=== PATIENT | female | born 1995 | race Caucasian/White ===

== ENCOUNTER 2025-08-26 16:34 | Emergency (ER) | payer OTHER, SELFPAY ==
--- NOTE | 2025-08-26 16:36 | ED_ITS ---
HPI - Skin/Abscess/Foreign Bdy General Chief complaint: Skin/Abscess/Foreign Body Stated complaint: Skin Sore/Left Leg Time Seen by Provider: 08/26/25 16:36 Source: patient Mode of arrival: ambulatory Limitations: no limitations History of Present Illness HPI narrative: Gertrude is a 29-year-old female patient presenting to the clinic today with complaints of a sore to the left leg that she 1st noticed yesterday. She reports that the area is tender to touch and is red. Does not know she got bit by an insect. No fevers, chills, or body aches. She reports that she has got some tingling radiating down into her foot. Related Data Home Medications ?Medication ?Instructions ?Recorded ?Confirmed ?Last Taken ?Type dextroamphetamine-amphetamine 10 08/26/25 Unknown Hi story mg tablet Allergies Allergy/AdvReac Type Severity Reaction Status Date / Time No Known Allergies Allergy Verified 08/26/25 16:47 Review of Systems Review of Systems: Pertinent positives per HPI. Patient denies any fever, chills, rash, headache, visual changes, dizziness, cough, shortness of breath, chest pain, palpitations, nausea, vomiting, diarrhea, constipation, abdominal pain, or any urinary issues. PMFSH Comments At the time of my signature, I reviewed and agree with the nursing past medical, surgical, social, and family history. There is no relevant family history pertinent to the patient complaint. Exam Narrative: General: Well-developed, well nourished, in no apparent distress Head: Normocephalic, atraumatic. Cardio: Regular rate and rhythm, s1 and s2 normal, no murmur appreciated. Resp: Clear to auscultation bilaterally, no rhonchi, rales, wheezing or rubs. Integumentary: [employer], warm, and dry, red, firm, erythemic, non fluctuant skin abscess to the left lateral lower leg-induration measuring 1 cm with a 4 x 6cm in surrounding redness Course Course Emergency Course: Portions of this record may have been created with voice recognition software. Level of Care: Express Care Visit Vital Signs Vital signs: Vital Signs Temperature 36.8 C 08/26/25 16:47 Pulse Rate 86 08/26/25 16:47 Respiratory Rate 16 08/26/25 16:47 Blood Pressure 140/87 08/26/25 16:47 Pulse Oximetry 100 1011/25 16:47 Oxygen Delivery Room Air 08/26/25 16:47 Temperature 36.8 C 08/26/25 16:47 Pulse Rate 86 08/26/25 16:47 Respiratory Rate 16 08/26/25 16:47 Blood Pressure 140/87 08/26/25 16:47 Pulse Oximetry 100 08/26/25 16:47 Oxygen Delivery Room Air 08/26/25 16:47 Vital signs reviewed MDM - Skin/Abscess/Foreign Bdy MDM Narrative Medical decision making narrative: At the time of visit patient is resting comfortably on the exam table. Patient appears to be nontoxic. Complaints of a sore to the left leg that she 1st noticed yesterday. She reports that the area is tender to touch and is red. Does not know she got bit by an insect. No fevers, chills, or body aches. She reports that she has got some tingling radiating down into her foot. red, firm, erythemic, non fluctuant skin abscess to the left lateral lower leg-induration measuring 1 cm with a 4 x 6cm in surrounding redness. Plan: I suspect patient has an non fluctuant abscess. Prescription for clindamycin was sent to the pharmacy. Supportive measures were discussed with t he patient and they voiced understanding discharge instructions and agrees to treatment plan. Return precautions reviewed complaints Differential Diagnosis Differential diagnosis: Likely abscess of skin or subcutaneous tissue, viral exanthem, dermatophytosis, urticaria, herpes zoster, allergic reaction to drug, cellulitis, eczema, insect bites, impetigo and contact dermatitis Discharge Plan Discharge Clinical Impression: Abscess of skin or subcutaneous tissue Qualifiers: Site of cutaneous abscess: extremity Site of cutaneous abscess of extremity: lower extremity Laterality: left Qualified Code(s): L02.416 - Cutaneous abscess of left lower limb Patient Disposition: Home Condition: Stable Instructions: Antibiotic Form, Abscess (ED) Additional Instructions: I suspect you have an abscess Take clindamycin as prescribed May take Tylenol/Motrin as needed for pain May apply warm compresses to the area to help make the area fluctuant for drainage If the area becomes fluctuant may return and have the area drained Follow-up with your PCP in 3-5 days if symptoms persist or sooner if it worsens Patient Language: Greek Prescriptions: New clindamycin HCl [Cleocin HCl] 300 mg capsule 300 mg PO Q8H 7 Days Qty: 21 0RF No Action dextroamphetamine-amphetamine 10 mg tablet Follow-up/Referrals: UNKNOWN,DOCTOR [Non-Staff] Time of Disposition: 17:19 Quality NIHSS Nursing Documentation ED NIHSS nursing documentation: reviewed/agree
[2025-08-26 16:47] VITALS: BP 140/87; PULSE 86; RESP 16; TEMP 36.8; O2SAT 100
== END 2025-08-26 17:26 | disposition home or self-care (01) ==
PROVIDERS: Emergency Provider Nurse Practitioner Family
DX: L02.416 Cutaneous abscess of left lower limb (principal)
CPT/HCPCS: 99203; G0463